=== PATIENT | female | born 1950 | race Caucasian/White ===

== ENCOUNTER 2016-08-11 16:30 | Emergency (ER) | payer MEDICARE, BC ==
[2016-08-11 16:52] VITALS: BP 128/78
[2016-08-11] MEDS ORDERED: Sodium Chloride 0.9% 10 ML Syringe FLUSH PRN (16:54)
[2016-08-11] MEDS ORDERED: Sodium Chloride 0.9% 1,000 ML IV SCH (17:00)
--- NOTE | 2016-08-11 19:58 | EDM.PDOC ---
ED HPI SEIZURE COMPLAINT - General Chief Complaint: Syncope Stated Complaint: NEARLY FAINTED Time Seen by Provider: 08/11/16 16:40 Source of Information: Reports: Patient History Limitations: Reports: No limitations - History of Present Illness INITIAL COMMENTS - FREE TEXT/NARRATIVE: The patient presents with near syncope. She was playing cards with friends today and she told them she did not feel well and she had to lay down. She did that and she nearly passed out. She had no chest pain or shortness of breath. She had no headache. She has no abdominal pain, nausea or vomiting. She says for a few months she has had trouble with bright lights like in stores. It would make her vision seem strange. July 21 [place] was in [employer] and she did not feel right. She put her head down on her cart and the next thing she knows she is on her way to the hospital. She passed out and had a seizure. She was evaluated at [facility] and admitted. They did a CT of her head and chest that looked good. He troponin was elevated but her EKG showed nothing acute. She had an echocardiogram that looked good. Cardiology did see her. Her doctor Dr Marsh ordered an EEG that was normal and an MRI of her brain that showed some ischemic white matter changes. She denies any changes in her medications. Since the , she has not felt well. She has very little energy. Timing/Duration: Reports: minutes: Event Occurred (Where): other ([facility]) Event (Witnessed/Unwitnessed): witnessed Pre Event Symptom(s): Reports: other (Near syncope) - Related Data Allergies/ADRs: Allergies Allergy/AdvReac Type Severity Reaction Status Date / Time ciprofloxacin [From Cipro] Allergy Renal Verified 08/11/16 16:40 Failure diphenhydramine Allergy Itching Verified 08/11/16 16:40 [From Benadryl] metoclopramide [From Reglan] Allergy Change Verified 08/11/16 16:40 Mental Status Penicillins Allergy Rash Verified 08/11/16 16:40 Sulfa (Sulfonamide Allergy Rash Verified 08/11/16 16:40 Antibiotics) Home Meds: Home Meds Oc Cit/Mag/D3/Zn/Candle Extrusion Machine Operator/Jensen/Bor [Citracal-Vit D + Magnesium] 1 tab PO PCDINNER [History] LORazepam [Ativan] 1 mg PO Q8H PRN 08/11/16 [History] PARoxetine HCl [Paxil Cr] 37.5 mg PO DAILY 08/11/16 [History] Rosuvastatin [Crestor] 10 mg PO MOWEFRSA 08/11/16 [History] Ubidecarenone [Co Q-10] 100 mg PO BEDTIME 08/11/16 [History] Past Medical History HEENT History: Reports: Cataract, Impaired vision Other HEENT History: wears eyeglasses Cardiovascular History: Reports: Heart murmur, High cholesterol Gastrointestinal History: Reports: GERD, Hiatal hernia Musculoskeletal History: Reports: Arthritis Neurological History: Reports: Other (see below) Other Neuro History: 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 Psychiatric History: Reports: Anxiety, Depression - Infectious Disease History Infectious Disease History: Reports: Chicken pox, Measles - Past Surgical History GI Surgical History: Reports: Appendectomy, Cholecystectomy Musculoskeletal Surgical History: Reports: Knee replacement Social & Family History - Tobacco Use Smoking Status *Q: Never Smoker Second Hand Smoke Exposure: No - Caffeine Use Caffeine Use: Reports: Soda - Recreational Drug Use Recreational Drug Use: No ED ROS GENERAL - Review of Systems Review Of Systems: See Below Constitutional: Reports: no symptoms HEENT: Reports: No symptoms Respiratory: Reports: no symptoms Cardiovascular: Reports: No symptoms Endocrine: Reports: no symptoms GI/Abdominal: Reports: No symptoms : Reports: no symptoms Musculoskeletal: Reports: no symptoms - Physical Exam Exam: See Below Exam Limited By: No limitations General Appearance: alert, no apparent distress Ears: normal external exam Nose: normal inspection Throat/Mouth: Normal inspection Head Exam: atraumatic, normocephalic Neck: normal inspection Respiratory/Chest: no respiratory distress, lungs clear, normal breath sounds Cardiovascular: regular rate, rhythm, no edema, no murmur GI/Abdominal: soft, non tender, no organomegaly Neuro Exam (Abbreviated): alert, oriented, no motor/sensory deficits EKG INTERPRETATION EKG Date: 08/11/16 Time: 16:38 Rhythm: NSR Rate (beats/min): 87 Diggs: normal P-wave: present QRS: normal ST-T: normal QT: normal Course - Vital Signs Last Recorded V/S: Last Vital Signs Temp 98.1 F 08/11/16 16:30 Pulse 90 08/11/16 16:30 Resp 12 08/11/16 16:30 BP 128/78 08/11/16 16:30 Pulse Ox 96 08/11/16 16:30 - Orders/Labs/Meds Orders: Active Orders 24 hr Category Date Time Status Cardiac Monitoring [RC] . DIRECTED Care 08/11/16 16:54 Active EKG Documentation Completion [RC] STAT Care 08/11/16 16:55 Active Holter Monitor 48 Hours [RC] .PRN Care 08/11/16 19:48 Active Peripheral IV Care [RC] . DIRECTED Care 08/11/16 16:55 Active Sodium Chloride 0.9% [Normal Saline] 1,000 ml Med 08/11/16 17:00 Active IV ASDIRECTED Sodium Chloride 0.9% [Saline Flush] Med 08/11/16 16:54 Active 10 ml FLUSH ASDIRECTED PRN Peripheral IV Insertion Adult [OM.PC] Stat Oth 08/11/16 16:54 Ordered Medication Orders Sodium Chloride (Normal Saline) 1,000 mls @ 125 mls/hr IV ASDIRECTED KODY Last Admin: 08/11/16 17:15 Dose: 125 mls/hr Sodium Chloride (Saline Flush) 10 ml FLUSH ASDIRECTED PRN PRN Reason: Keep Vein Open Last Admin: 08/11/16 17:10 Dose: 10 ml Labs: Laboratory Tests 08/11/16 08/11/16 Range/Units 17:10 17:10 WBC 5.48 (3.98-10.04) K/mm3 RBC 4.33 (3.98-5.22) M/mm3 Hgb 13.1 (11.2-15.7) gm/L Hct 40.5 (34.1-44.9) % MCV 93.5 (79.4-94.8) fl MCH 30.3 (25.6-32.2) pg MCHC 32.3 (32.2-35.5) g/dl RDW Std Deviation 45.9 (36.4-46.3) fL Plt Count 309 (182-369) K/mm3 MPV 9.6 (9.4-12.3) fl Neut % (Auto) 55.2 (34.0-71.1) % Lymph % (Auto) 24.8 (19.3-51.7) % [place] % (Auto) 13.3 H (4.7-12.5) % Eos % (Auto) 4.9 (0.7-5.8) Baso % (Auto) 0.9 (0.1-1.2) % Neut # 3.02 (1.56-6.13) K/mm3 Lymph # 1.36 (1.18-3.74) K/mm3 [place] # 0.73 H (0.24-0.36) K/mm3 Eos # 0.27 (0.04-0.36) K/mm3 Baso # 0.05 (0.01-0.08) K/mm3 Sodium 141 (136-145) mEq/L Potassium 3.9 (3.5-5.1) mEq/L Chloride 106 (98-107) mEq/L Carbon Dioxide 26 (21-32) mEq/L Anion Gap 12.9 (5-15) BUN 15 (7-18) mg/dL Creatinine 1.0 (0.55-1.02) mg/dL Est Cr Clr Drug Dosing 57.83 mL/min Estimated GFR (MDRD) 55 (>60) mL/min BUN/Creatinine Ratio 15.0 (14-18) Glucose 126 H (80-115) mg/dL Calcium 8.3 L (8.5-10.1) mg/dL Total Bilirubin 0.3 (0.2-1.0) mg/dL AST 24 (15-37) U/L ALT 28 (14-59) U/L Alkaline Phosphatase 125 H (46-116) U/L Troponin I < 0.017 (0.00-0.056) ng/mL Total Protein 6.9 (6.4-8.2) g/dl Albumin 3.4 (3.4-5.0) g/dl Globulin 3.5 gm/dL Albumin/Globulin Ratio 1.0 (1-2) Meds: Medications Generic Name Dose Route Start Last Admin Trade Name Freq PRN Reason Stop Dose Admin Sodium Chloride 1,000 mls @ 125 mls/hr 08/11/16 17:00 08/11/16 17:15 Normal Saline IV 125 mls/hr ASDIRECTED KODY Administration Sodium Chloride 10 ml 08/11/16 16:54 08/11/16 17:10 Saline Flush FLUSH 10 ml ASDIRECTED PRN Administration Keep Vein Open - Re-Assessments/Exams Free Text/Narrative Re-Assessment/Exam: 08/11/16 20:00 I ordered an IV NS, EKG and labs. Her EKG shows a NSR with no acute changes. Her CBC and CMP look good. Her troponin was negative. I called Dr Kasper at [facility] in [place] and he wanted a holter monitor and he recommended she see his partner Dr Hummel. I have ordered a holter monitor for her. Departure - Departure Time of Disposition: 20:05 Disposition: Home, Self-Care 01 Condition: good Clinical Impression: Near syncope Referrals: Gino Marsh MD [Primary Care Provider] - Forms: ED Department Discharge Additional Instructions: Wear the holter monitor for 2 days. Please call [facility] specialty clinics to make an appointment for the neurologist Dr Kasper or Dr Hummel. Please return if you are worse. - My Orders Last 24 Hours: My Active Orders 08/11/16 16:54 Cardiac Monitoring [RC] . DIRECTED Sodium Chloride 0.9% [Saline Flush] 10 ml FLUSH ASDIRECTED PRN Peripheral IV Insertion Adult [OM.PC] Stat 08/11/16 16:55 EKG Documentation Completion [RC] STAT Peripheral IV Care [RC] . DIRECTED 08/11/16 17:00 Sodium Chloride 0.9% [Normal Saline] 1,000 ml IV ASDIRECTED 08/11/16 19:48 Holter Monitor 48 Hours [RC] .PRN - Assessment/Plan Last 24 Hours: My Active Orders 08/11/16 16:54 Cardiac Monitoring [RC] . DIRECTED Sodium Chloride 0.9% [Saline Flush] 10 ml FLUSH ASDIRECTED PRN Peripheral IV Insertion Adult [OM.PC] Stat 08/11/16 16:55 EKG Documentation Completion [RC] STAT Peripheral IV Care [RC] . DIRECTED 08/11/16 17:00 Sodium Chloride 0.9% [Normal Saline] 1,000 ml IV ASDIRECTED 08/11/16 19:48 Holter Monitor 48 Hours [RC] .PRN
== END 2016-08-11 20:35 | disposition home or self-care (01) ==
LOC: JD.ED 16:30
DX: R55 Syncope and collapse (principal); Z88.1 Allergy status to other antibiotic agents; Z88.8 Allergy status to other drugs, medicaments and biological substances; Z88.0 Allergy status to penicillin; Z88.2 Allergy status to sulfonamides; Z79.899 Other long term (current) drug therapy; E78.00 Pure hypercholesterolemia, unspecified; K21.9 Gastro-esophageal reflux disease without esophagitis; K44.9 Diaphragmatic hernia without obstruction or gangrene; M19.90 Unspecified osteoarthritis, unspecified site; F32.9 Major depressive disorder, single episode, unspecified; F41.9 Anxiety disorder, unspecified; Z96.659 Presence of unspecified artificial knee joint
CPT/HCPCS: 36415; 80053; 84484; 85025; 93005; 93225; 93226; 96360; 96361; 99284; J7040; J7050; 99285

== ENCOUNTER 2017-01-26 07:28 | Day surgery (SDC) | payer MEDICARE, BC ==
[~2017-01-26 07:28] MED LIST: Cefuroxime 10 MG/ML SYRINGE EYERT SCH; Lidocaine 1% PF 2 ML SDV INJECT SCH; Pilocarpine 4% Ophth Soln 15 ML Bot EYERT SCH
[2017-01-26] MEDS: Tobramycin 0.3% Ophth Drops 5 ML Bottle EYERT SCH ×3 (07:41→09:40)
[2017-01-26] MEDS: Brimonidine 0.2% Ophth Soln 5 ML Bottle EYERT SCH ×3 (07:46→09:40)
--- NOTE | 2017-01-26 07:48 | PCM.PREANE ---
Preanesthetic Assessment - Anesthesia/Transfusion/Family Hx Anesthesia History: Prior Anesthesia Without Reaction Family History of Anesthesia Reaction: No - Review of Systems General: No Symptoms Pulmonary: Shortness of Breath (SOB with several flights of stairs) Cardiovascular: Other (murmur) Gastrointestinal: Other (hiatal hernia, occassional heartburn) Neurological: Seizure (had seizure in July, MRI, CT negative, neurologist feels related to visual bright lights) Other: Reports: Anxiety - Physical Assessment NPO Status Date: 01/25/17 NPO Status Time: 21:00 Pulse: 74 O2 Sat by Pulse Oximetry: 95 Respiratory Rate: 16 Blood Pressure: 130/75 Height: 1.75 m Weight: 114.305 kg ASA Class: 2 Mental Status: Alert & Oriented x3 Airway Class: Mallampati = 2 Dentition: Reports: Dentures, Edentulous Thyro-Mental Finger Breadths: 3 Mouth Opening Finger Breadths: 3 ROM/Head Extension: Full Lungs: Clear to Auscultation, Normal Respiratory Effort Cardiovascular: Regular Rate, Regular Rhythm - Allergies Allergies/Adverse Reactions: Allergies Allergy/AdvReac Type Severity Reaction Status Date / Time cephalexin [From Keflex] Allergy Cannot Verified 01/25/17 10:12 Remember codeine Allergy Cannot Verified 01/25/17 10:12 Remember diphenhydramine Allergy Itching Verified 01/25/17 10:12 [From Benadryl] Penicillins Allergy Rash Verified 01/25/17 10:12 Sulfa (Sulfonamide Allergy Rash Verified 01/25/17 10:12 Antibiotics) ciprofloxacin [From Cipro] AdvReac Renal Verified 01/25/17 10:12 Failure metoclopramide [From Reglan] AdvReac Change Verified 01/25/17 10:12 Mental Status - Blood Blood Available: No Product(s) Available: None - Anesthesia Plan Pre-Op Medication Ordered: None - Acknowledgements Anesthesia Type Planned: MAC Pt an Appropriate Candidate for the Planned Anesthesia: Yes Alternatives and Risks of Anesthesia Discussed w Pt/Guardian: Yes Pt/Guardian Understands and Agrees with Anesthesia Plan: Yes PreAnesthesia Questionnaire HEENT History: Reports: Cataract, Impaired Vision Other HEENT History: wears eyeglasses Cardiovascular History: Reports: Heart Murmur, High Cholesterol Gastrointestinal History: Reports: GERD, Hiatal Hernia Musculoskeletal History: Reports: Arthritis Neurological History: Reports: Other (See Below) Other Neuro History: 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 Psychiatric History: Reports: Anxiety, Depression - Infectious Disease History Infectious Disease History: Reports: Chicken Pox, Measles - Past Surgical History Musculoskeletal Surgical History: Reports: Knee Replacement - SUBSTANCE USE Smoking Status *Q: Never Smoker Second Hand Smoke Exposure: No Recreational Drug Use History: No - HOME MEDS Home Medications: Home Meds LORazepam [Ativan] 1 mg PO Q8H PRN 08/11/16 [History] PARoxetine HCl [Paxil Cr] 37.5 mg PO DAILY 08/11/16 [History] Rosuvastatin [Crestor] 10 mg PO MOWEFRSA 08/11/16 [History] Calcium Carbonate [Calcium] 500 mg PO DAILY 01/25/17 [History] Cholecalciferol (Vitamin D3) [Vitamin D] 5,000 unit PO DAILY 01/25/17 [History] Magnesium 250 mg PO DAILY 01/25/17 [History] - CURRENT (IN HOUSE) MEDS Current Meds: Current Medications Brimonidine Tartrate (Alphagan 0.2% Ophth Soln) 0 ml EYERT ASDIRECTED KODY Stop: 01/26/17 18:00 Cefuroxime Sodium (Zinacef) 0 mg EYERT ASDIRECTED KODY Stop: 01/26/17 18:00 Lidocaine HCl (Xylocaine-Mpf 1%) 10 ml INJECT ASDIRECTED KODY Stop: 01/26/17 18:00 Phenylephrine HCl (Paul-Synephrine 2.5% Ophth Soln) 0 ml EYERT ASDIRECTED KODY Stop: 01/26/17 18:00 Pilocarpine HCl (Pilocar 4% Ophth Soln) 0 ml EYERT ASDIRECTED KODY Stop: 01/26/17 18:00 Tetracaine HCl (Tetracaine 0.5% Steri-Unit Elizabeth) 0 ml EYERT ASDIRECTED KODY Stop: 01/26/17 18:00 Tobramycin (Tobramycin 0.3% Ophth Soln) 0 ml EYERT ASDIRECTED KODY Stop: 01/26/17 18:00 Tropicamide (Mydriacyl 1% Ophth Soln) 0 ml EYERT ASDIRECTED KODY Stop: 01/26/17 18:00
[2017-01-26] MEDS: Phenylephrine 2.5% Ophth Soln 2 ML Bot EYERT SCH ×5 (07:50→09:23)
[2017-01-26] MEDS: Tetracaine HCl/PF 0.5% 4 ML Bottle EYERT SCH ×2 (09:05→09:29)
--- NOTE | 2017-01-26 09:16 | PCM48HPAN ---
Post Anesthesia Note - EVALUATION WITHIN 48HRS OF ANESTHETIC Vital Signs in Normal Range: Yes Patient Participated in Evaluation: Yes Respiratory Function Stable: Yes Airway Patent: Yes Cardiovascular Function Stable: Yes Hydration Status Stable: Yes Pain Control Satisfactory: Yes Nausea and Vomiting Control Satisfactory: Yes Mental Status Recovered: Yes
[2017-01-26] MEDS ORDERED: Midazolam 1 MG/ML 2 ML SDV ONE (09:28)
[2017-01-26] MEDS ORDERED: Propofol 200 MG/20 ML SDV ONE (09:33)
[2017-01-26 10:04] VITALS: BP 125/77
== END 2017-01-26 10:00 | disposition home or self-care (01) ==
LOC: JD.SDS 07:28
PROVIDERS: ATTEND Ophthalmology
DX: H25.811 Combined forms of age-related cataract, right eye (principal); H35.373 Puckering of macula, bilateral; H35.40 Unspecified peripheral retinal degeneration; H43.813 Vitreous degeneration, bilateral; M19.90 Unspecified osteoarthritis, unspecified site; E78.00 Pure hypercholesterolemia, unspecified; F41.9 Anxiety disorder, unspecified; F32.9 Major depressive disorder, single episode, unspecified; Z88.0 Allergy status to penicillin; Z88.1 Allergy status to other antibiotic agents; Z88.2 Allergy status to sulfonamides; Z88.5 Allergy status to narcotic agent; Z88.8 Allergy status to other drugs, medicaments and biological substances; Z79.82 Long term (current) use of aspirin; Z79.899 Other long term (current) drug therapy; Z87.442 Personal history of urinary calculi; Z90.49 Acquired absence of other specified parts of digestive tract; Z90.710 Acquired absence of both cervix and uterus; Z96.659 Presence of unspecified artificial knee joint; Z98.890 Other specified postprocedural states
CPT/HCPCS: 66984; A9270; C1780; J0697; J2250; J2704

== ENCOUNTER 2017-02-21 10:20 | Day surgery (SDC) | payer MEDICARE, BC ==
[~2017-02-21 10:20] MED LIST changes: +Cefuroxime 10 MG/ML SYRINGE EYELF SCH; -Cefuroxime 10 MG/ML SYRINGE EYERT SCH; +Pilocarpine 4% Ophth Soln 15 ML Bot EYELF SCH; -Pilocarpine 4% Ophth Soln 15 ML Bot EYERT SCH; +Polymyxin B/Trimethoprim 10 ML Bottle EYELF SCH
--- NOTE | 2017-02-21 12:00 | PCM.PREANE ---
Preanesthetic Assessment - Procedure Proposed Procedure: Left eye cataract extraction - Anesthesia/Transfusion/Family Hx Anesthesia History: Prior Anesthesia Without Reaction Family History of Anesthesia Reaction: No Transfusion History: No Prior Transfusion(s) Intubation History: Unknown - Review of Systems General: No Symptoms Pulmonary: No Symptoms Cardiovascular: No Symptoms (Heart murmur) Gastrointestinal: No Symptoms Neurological: Seizure Other: Reports: Depression, Anxiety - Physical Assessment NPO Status Date: 02/20/17 NPO Status Time: 11:45 Pulse: 62 O2 Sat by Pulse Oximetry: 96 Respiratory Rate: 16 Blood Pressure: 134/73 Temperature: 98.6 C Height: 1.75 m Weight: 114.305 kg ASA Class: 2 Mental Status: Alert & Oriented x3 Airway Class: Mallampati = 2 Dentition: Reports: Dentures (Upper and lower) Thyro-Mental Finger Breadths: 3 Mouth Opening Finger Breadths: 3 ROM/Head Extension: Full Lungs: Clear to Auscultation, Normal Respiratory Effort Cardiovascular: Regular Rate, Regular Rhythm - Allergies Allergies/Adverse Reactions: Allergies Allergy/AdvReac Type Severity Reaction Status Date / Time cephalexin [From Keflex] Allergy Cannot Verified 02/20/17 14:59 Remember codeine Allergy Cannot Verified 02/20/17 14:59 Remember diphenhydramine Allergy Itching Verified 02/20/17 14:59 [From Benadryl] Penicillins Allergy Rash Verified 02/20/17 14:59 Sulfa (Sulfonamide Allergy Rash Verified 02/20/17 14:59 Antibiotics) ciprofloxacin [From Cipro] AdvReac Renal Verified 02/20/17 14:59 Failure metoclopramide [From Reglan] AdvReac Change Verified 02/20/17 14:59 Mental Status - Anesthesia Plan Pre-Op Medication Ordered: None - Acknowledgements Anesthesia Type Planned: MAC Pt an Appropriate Candidate for the Planned Anesthesia: Yes Alternatives and Risks of Anesthesia Discussed w Pt/Guardian: Yes Pt/Guardian Understands and Agrees with Anesthesia Plan: Yes PreAnesthesia Questionnaire HEENT History: Reports: Cataract, Impaired Vision Other HEENT History: wears eyeglasses Cardiovascular History: Reports: Heart Murmur, High Cholesterol Gastrointestinal History: Reports: GERD, Hiatal Hernia Musculoskeletal History: Reports: Arthritis Neurological History: Reports: Other (See Below) Other Neuro History: 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 Psychiatric History: Reports: Anxiety, Depression - Infectious Disease History Infectious Disease History: Reports: Chicken Pox, Measles - Past Surgical History Musculoskeletal Surgical History: Reports: Knee Replacement - SUBSTANCE USE Smoking Status *Q: Never Smoker Second Hand Smoke Exposure: No Recreational Drug Use History: No - HOME MEDS Home Medications: Home Meds LORazepam [Ativan] 1 mg PO Q8H PRN 08/11/16 [History] PARoxetine HCl [Paxil Cr] 37.5 mg PO DAILY 08/11/16 [History] Rosuvastatin [Crestor] 10 mg PO MOWEFRSA 08/11/16 [History] Calcium Carbonate [Calcium] 500 mg PO DAILY 01/25/17 [History] Cholecalciferol (Vitamin D3) [Vitamin D] 5,000 unit PO DAILY 01/25/17 [History] Magnesium 250 mg PO DAILY 01/25/17 [History] - CURRENT (IN HOUSE) MEDS Current Meds: Current Medications Brimonidine Tartrate (Alphagan 0.2% Ophth Soln) 0 ml EYELF ASDIRECTED KODY Stop: 02/21/17 18:00 Cefuroxime Sodium (Zinacef) 0 mg EYELF ASDIRECTED KODY Stop: 02/21/17 18:00 Lidocaine HCl (Xylocaine-Mpf 1%) 1 ml INJECT ASDIRECTED KODY Stop: 02/21/17 18:00 Phenylephrine HCl (Paul-Synephrine 2.5% Ophth Soln) 0 ml EYELF ASDIRECTED KODY Stop: 02/21/17 18:00 Pilocarpine HCl (Pilocar 4% Ophth Soln) 0 ml EYELF ASDIRECTED KODY Stop: 02/21/17 18:00 Tetracaine HCl (Tetracaine 0.5% Steri-Unit Elizabeth) 0 ml EYELF ASDIRECTED KODY Stop: 02/21/17 18:00 Tobramycin (Tobramycin 0.3% Ophth Soln) 0 ml EYELF ASDIRECTED KODY Stop: 02/21/17 18:00 Tropicamide (Mydriacyl 1% Ophth Soln) 0 ml EYELF ASDIRECTED KODY Stop: 02/21/17 18:00 Discontinued Medications Polymyxin/Trimethoprim Sulfate (Polytrim Ophth Soln) 0 ml EYELF ASDIRECTED KODY
[2017-02-21] MEDS: Tobramycin 0.3% Ophth Drops 5 ML Bottle EYELF SCH ×3 (12:02→13:33)
[2017-02-21] MEDS: Brimonidine 0.2% Ophth Soln 5 ML Bottle EYELF SCH ×3 (12:07→13:33)
[2017-02-21] MEDS: Phenylephrine 2.5% Ophth Soln 2 ML Bot EYELF SCH ×5 (12:13→13:17)
[2017-02-21] MEDS: Tetracaine HCl/PF 0.5% 4 ML Bottle EYELF SCH ×2 (13:07→13:24)
[2017-02-21 13:47] VITALS: BP 159/86
== END 2017-02-21 13:45 | disposition home or self-care (01) ==
LOC: JD.SDS 10:20
PROVIDERS: ATTEND Ophthalmology
PROC: 08RK3JZ Replacement of Left Lens with Synthetic Substitute, Percutaneous Approach (ICD-10-PCS; principal; 2017-02-21)
DX: H25.812 Combined forms of age-related cataract, left eye (principal); E78.00 Pure hypercholesterolemia, unspecified; M19.90 Unspecified osteoarthritis, unspecified site; Z88.5 Allergy status to narcotic agent; Z88.0 Allergy status to penicillin; Z88.2 Allergy status to sulfonamides; Z88.8 Allergy status to other drugs, medicaments and biological substances; Z88.1 Allergy status to other antibiotic agents; Z79.82 Long term (current) use of aspirin; Z79.899 Other long term (current) drug therapy
CPT/HCPCS: 66984; A9270; J0697; C1780

== ENCOUNTER 2020-12-31 14:44 | Emergency (ER) | payer MEDICARE, BC ==
--- NOTE | 2020-12-31 15:11 | EDM.PDOC ---
ED HPI GENERAL MEDICAL PROBLEM - General Chief Complaint: Chest Pain Stated Complaint: CHEST PAIN Time Seen by Provider: 12/31/20 15:11 Source of Information: Reports: Patient History Limitations: Reports: No Limitations - History of Present Illness INITIAL COMMENTS - FREE TEXT/NARRATIVE: 70-year-old female presents to the ED with diffuse epigastric pressure discomfort which she states is like a balled up fist in the middle of her epigastrium rating up into the lower retrosternal. She states for a while it was radiating through to the back but not now occasional nausea without any vomiting. No burping or belching. 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 As far she knows she does not have a hiatal hernia. She has had previous cholecystectomy many years ago. States bowel function has been normal without any blood. She has not taken any medication for this pain. It is currently rated as 9 out of 10. Onset: Today, Sudden Onset Date: 12/31/20 Onset Time: 12:00 Duration: Hour(s):, Constant, Getting Worse Location: Reports: Abdomen (Epigastrium and lower retrosternal chest.) Quality: Reports: Ache, Pressure Severity: Moderate Improves with: Reports: None (9 of the 10) Worsens with: Reports: None Context: Denies: Activity, Exercise, Lifting, Sick Contact, Trauma, Other Associated Symptoms: Reports: Chest Pain, Loss of Appetite, Malaise. 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: Other (see below) Other Treatments LAND ACQUISITION MANAGER: none Upper Abdomen Pain Score (Numeric/FACES): 9 - Related Data Allergies Allergy/AdvReac Type Severity Reaction Status Date / Time cephalexin [From Keflex] Allergy Severe Cannot Verified 12/31/20 15:08 Remember codeine Allergy Severe Cannot Verified 12/31/20 15:08 Remember diphenhydramine Allergy Severe Itching Verified 12/31/20 15:08 [From Benadryl] Penicillins Allergy Severe Rash Verified 12/31/20 15:08 Sulfa (Sulfonamide Allergy Severe Rash Verified 12/31/20 15:08 Antibiotics) ciprofloxacin [From Cipro] AdvReac Severe Renal Verified 12/31/20 15:08 Failure metoclopramide [From Reglan] AdvReac Severe Change Verified 12/31/20 15:08 Mental Status Home Meds: Home Meds LORazepam [Ativan] 1 mg PO Q8H PRN 08/11/16 [History] PARoxetine HCL [Paxil Cr] 37.5 mg PO DAILY 08/11/16 [History] Calcium Carbonate [Calcium] 500 mg PO DAILY 01/25/17 [History] Cholecalciferol (Vitamin D3) [Vitamin D] 5,000 unit PO DAILY 01/25/17 [History] Magnesium 250 mg PO DAILY 01/25/17 [History] Dicyclomine [Bentyl] 20 mg PO Q6H PRN #12 tablet 12/31/20 [Rx] Hyoscyamine Sulfate [Levsin-Sl] 0.125 mg SL ASDIRECTED #8 tab.subl 12/31/20 [Rx] PARoxetine [Paxil] 12.5 mg PO DAILY 12/31/20 [History] Past Medical History HEENT History: Reports: Cataract, Impaired Vision Other HEENT History: wears eyeglasses Cardiovascular History: Reports: Heart Murmur, High Cholesterol Gastrointestinal History: Reports: GERD, Hiatal Hernia Musculoskeletal History: Reports: Arthritis Neurological History: Reports: Other (See Below) Other Neuro History: 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 Psychiatric History: Reports: Anxiety, Depression - Infectious Disease History Infectious Disease History: Reports: Chicken Pox, Measles - Past Surgical History Musculoskeletal Surgical History: Reports: Knee Replacement Social & Family History - Caffeine Use Caffeine Use: Reports: Soda - Living Situation & Occupation Living situation: Reports: Single Occupation: Retired [employer] [facility] - Review of Systems Review Of Systems: See Below Constitutional: Denies: Fever, Chills, Malaise, Weakness, Fatigue, Decreased Appetite, Weight Loss HEENT: Reports: Glasses Respiratory: Reports: No Symptoms Cardiovascular: Reports: No Symptoms Endocrine: Reports: No Symptoms GI/Abdominal: Reports: Abdominal Pain (See history of present illness), Decreased Appetite. Denies: Difficulty Swallowing, Distension, Flatus, Hematemesis, Hematochezia, Melena, Nausea, Stool Incontinence, Vomiting, Other : Reports: No Symptoms Musculoskeletal: Reports: No Symptoms Skin: Reports: No Symptoms Neurological: Reports: No Symptoms Psychiatric: Reports: No Symptoms Hematologic/Lymphatic: Reports: No Symptoms Immunologic: Reports: No Symptoms ED EXAM, GENERAL - Physical Exam Exam: See Below Exam Limited By: No Limitations General Appearance: Alert, WD/WN, Moderate Distress (Patient is in obvious discomfort and), Other ( rates her pain is 9 out of 10. Temperature is 36.3. Heart rate 79 is sinus respiratory is 20 with O2 sats of 95%. BP is elevated 154 102 presumably due to pain response.) Eye Exam: Bilateral Eye: Normal Inspection (No blepharal pallor or scleral icterus.), PERRL Head: Atraumatic, Normocephalic Neck: Normal Inspection, Supple, Non-Tender, Full Range of Motion. No: Carotid Bruit, Lymphadenopathy (L), Lymphadenopathy (R) Respiratory/Chest: No Respiratory Distress, Lungs Clear, Normal Breath Sounds, No Accessory Muscle Use Cardiovascular: Normal Peripheral Pulses, Regular Rate, Rhythm, No Edema, No Gallop, No Murmur, No Rub Peripheral Pulses: 2+: Carotid (L), Carotid (R), Posterior Tibial (L), Posterior Tibial (R), Dorsalis Pedis (L), Dorsalis Pedis (R) GI/Abdominal: Distended ( very quiesced sent in all 4 quadrants. Mildly distended but not tympanic to percussion more dull to percussion.), Guarding ( with mild guarding.), Tender (Tenderness in the epigastrium), Abnormal Bowel Sounds (Bowel sounds are), Other (Evidence of previous laparoscopic wounds from cholecystectomy.). No: Normal Bowel Sounds, Rigid, Rebound Back Exam: Normal Inspection, Full Range of Motion. No: CVA Tenderness (L), CVA Tenderness (R) Extremities: Normal Inspection, Normal Range of Motion, Non-Tender, No Pedal Edema Neurological: Alert, Oriented, CN II-XII Intact, Normal Cognition Psychiatric: Normal Affect, Normal Mood Skin Exam: Warm, Dry, Intact, Normal Color, No Rash #1 Interpretation EKG Date: 12/31/20 Time: 15:01 Rhythm: NSR Rate (Beats/Min): 78 [place]: Normal P-Wave: Present (P waves present but is inverted in aVL questionable mixup in leads. Mild left atrial hypertrophy.) ST-T: Other (Diffuse repolarization pattern) QT: Normal EKG Interpretation Comments: Borderline ECG with no signs of ischemia Course - Vital Signs Last Recorded V/S: Last Vital Signs Temp 36.3 C 12/31/20 15:12 Pulse 79 12/31/20 15:12 Resp 20 12/31/20 15:12 BP 154/102 H 12/31/20 15:12 Pulse Ox 95 12/31/20 15:12 - Orders/Labs/Meds Orders: Active Orders 24 hr Category Date Time Status EKG 12 Lead [EK] Stat Ther 12/31/20 15:10 Ordered Labs: Laboratory Tests 12/31/20 12/31/20 12/31/20 Range/Units 15:00 15:00 15:00 WBC 7.49 (3.98-10.04) K/mm3 RBC 4.36 (3.98-5.22) M/mm3 Hgb 13.5 (11.2-15.7) gm/dl Hct 41.6 (34.1-44.9) % MCV 95.4 H (79.4-94.8) fl MCH 31.0 (25.6-32.2) pg MCHC 32.5 (32.2-35.5) g/dl RDW Std Deviation 44.4 (36.4-46.3) fL Plt Count 301 (182-369) K/mm3 MPV 9.4 (9.4-12.3) fl Neut % (Auto) 50.9 (34.0-71.1) % Lymph % (Auto) 35.4 (19.3-51.7) % [place] % (Auto) 8.5 (4.7-12.5) % Eos % (Auto) 3.5 (0.7-5.8) Baso % (Auto) 0.8 (0.1-1.2) % Neut # (Auto) 3.81 (1.56-6.13) K/mm3 Lymph # (Auto) 2.65 (1.18-3.74) K/mm3 [place] # (Auto) 0.64 H (0.24-0.36) K/mm3 Eos # (Auto) 0.26 (0.04-0.36) K/mm3 Baso # (Auto) 0.06 (0.01-0.08) K/mm3 Manual Slide Review Not Reportable PT (9.7-12.0) SECONDS INR APTT (21.7-31.4) SECONDS D-Dimer, Quantitative 0.90 H (0.19-0.50) mg/L Sodium 144 (136-145) mEq/L Potassium 4.1 (3.5-5.1) mEq/L Chloride 108 H (98-107) mEq/L Carbon Dioxide 31 (21-32) mEq/L Anion Gap 9.1 (5-15) BUN 8 (7-18) mg/dL Creatinine 1.1 H (0.55-1.02) mg/dL Est Cr Clr Drug Dosing 49.73 mL/min Estimated GFR (MDRD) 49 (>60) mL/min BUN/Creatinine Ratio 7.3 L (14-18) Glucose 119 H (70-99) mg/dL Calcium 8.9 (8.5-10.1) mg/dL Magnesium (1.8-2.4) mg/dL Total Bilirubin 0.5 (0.2-1.0) mg/dL GGT (5-55) U/L AST 32 (15-37) U/L ALT 41 (14-59) U/L Alkaline Phosphatase 118 H (46-116) U/L CK-MB (CK-2) (0-3.6) ng/ml Troponin I < 0.017 (0.00-0.056) ng/mL C-Reactive Protein (<1.0) mg/dL NT-Pro-B Natriuret Pep (0-125) pg/mL Total Protein 7.2 (6.4-8.2) g/dl Albumin 3.5 (3.4-5.0) g/dl Globulin 3.7 gm/dL Albumin/Globulin Ratio 1.0 (1-2) Lipase (73-393) U/L Urine Color (Yellow) Urine Appearance (Clear) Urine pH (5.0-8.0) Ur Specific [place] (1.005-1.030) Urine Protein (Negative) Urine Glucose (UA) (Negative) Urine Ketones (Negative) Urine Occult Blood (Negative) Urine Nitrite (Negative) Urine Bilirubin (Negative) Urine Urobilinogen (0.2-1.0) Ur Leukocyte Esterase (Negative) Urine RBC (0-5) /hpf Urine WBC (0-5) /hpf Ur Squamous Epith Cells (0-5) /hpf Urine Bacteria (FEW) /hpf Urine Mucus (FEW) /hpf 12/31/20 12/31/20 12/31/20 Range/Units 15:00 15:00 15:00 WBC (3.98-10.04) K/mm3 RBC (3.98-5.22) M/mm3 Hgb (11.2-15.7) gm/dl Hct (34.1-44.9) % MCV (79.4-94.8) fl MCH (25.6-32.2) pg MCHC (32.2-35.5) g/dl RDW Std Deviation (36.4-46.3) fL Plt Count (182-369) K/mm3 MPV (9.4-12.3) fl Neut % (Auto) (34.0-71.1) % Lymph % (Auto) (19.3-51.7) % [place] % (Auto) (4.7-12.5) % Eos % (Auto) (0.7-5.8) Baso % (Auto) (0.1-1.2) % Neut # (Auto) (1.56-6.13) K/mm3 Lymph # (Auto) (1.18-3.74) K/mm3 [place] # (Auto) (0.24-0.36) K/mm3 Eos # (Auto) (0.04-0.36) K/mm3 Baso # (Auto) (0.01-0.08) K/mm3 Manual Slide Review PT 10.9 (9.7-12.0) SECONDS INR 1.02 APTT 27.8 (21.7-31.4) SECONDS D-Dimer, Quantitative (0.19-0.50) mg/L Sodium (136-145) mEq/L Potassium (3.5-5.1) mEq/L Chloride (98-107) mEq/L Carbon Dioxide (21-32) mEq/L Anion Gap (5-15) BUN (7-18) mg/dL Creatinine (0.55-1.02) mg/dL Est Cr Clr Drug Dosing mL/min Estimated GFR (MDRD) (>60) mL/min BUN/Creatinine Ratio (14-18) Glucose (70-99) mg/dL Calcium (8.5-10.1) mg/dL Magnesium 2.0 (1.8-2.4) mg/dL Total Bilirubin (0.2-1.0) mg/dL GGT 25 (5-55) U/L AST (15-37) U/L ALT (14-59) U/L Alkaline Phosphatase (46-116) U/L CK-MB (CK-2) 2.2 (0-3.6) ng/ml Troponin I (0.00-0.056) ng/mL C-Reactive Protein <0.2 (<1.0) mg/dL NT-Pro-B Natriuret Pep 80 (0-125) pg/mL Total Protein (6.4-8.2) g/dl Albumin (3.4-5.0) g/dl Globulin gm/dL Albumin/Globulin Ratio (1-2) Lipase (73-393) U/L Urine Color (Yellow) Urine Appearance (Clear) Urine pH (5.0-8.0) Ur Specific [place] (1.005-1.030) Urine Protein (Negative) Urine Glucose (UA) (Negative) Urine Ketones (Negative) Urine Occult Blood (Negative) Urine Nitrite (Negative) Urine Bilirubin (Negative) Urine Urobilinogen (0.2-1.0) Ur Leukocyte Esterase (Negative) Urine RBC (0-5) /hpf Urine WBC (0-5) /hpf Ur Squamous Epith Cells (0-5) /hpf Urine Bacteria (FEW) /hpf Urine Mucus (FEW) /hpf 12/31/20 12/31/20 Range/Units 15:00 15:28 WBC (3.98-10.04) K/mm3 RBC (3.98-5.22) M/mm3 Hgb (11.2-15.7) gm/dl Hct (34.1-44.9) % MCV (79.4-94.8) fl MCH (25.6-32.2) pg MCHC (32.2-35.5) g/dl RDW Std Deviation (36.4-46.3) fL Plt Count (182-369) K/mm3 MPV (9.4-12.3) fl Neut % (Auto) (34.0-71.1) % Lymph % (Auto) (19.3-51.7) % [place] % (Auto) (4.7-12.5) % Eos % (Auto) (0.7-5.8) Baso % (Auto) (0.1-1.2) % Neut # (Auto) (1.56-6.13) K/mm3 Lymph # (Auto) (1.18-3.74) K/mm3 [place] # (Auto) (0.24-0.36) K/mm3 Eos # (Auto) (0.04-0.36) K/mm3 Baso # (Auto) (0.01-0.08) K/mm3 Manual Slide Review PT (9.7-12.0) SECONDS INR APTT (21.7-31.4) SECONDS D-Dimer, Quantitative (0.19-0.50) mg/L Sodium (136-145) mEq/L Potassium (3.5-5.1) mEq/L Chloride (98-107) mEq/L Carbon Dioxide (21-32) mEq/L Anion Gap (5-15) BUN (7-18) mg/dL Creatinine (0.55-1.02) mg/dL Est Cr Clr Drug Dosing mL/min Estimated GFR (MDRD) (>60) mL/min BUN/Creatinine Ratio (14-18) Glucose (70-99) mg/dL Calcium (8.5-10.1) mg/dL Magnesium (1.8-2.4) mg/dL Total Bilirubin (0.2-1.0) mg/dL GGT (5-55) U/L AST (15-37) U/L ALT (14-59) U/L Alkaline Phosphatase (46-116) U/L CK-MB (CK-2) (0-3.6) ng/ml Troponin I (0.00-0.056) ng/mL C-Reactive Protein (<1.0) mg/dL NT-Pro-B Natriuret Pep (0-125) pg/mL Total Protein (6.4-8.2) g/dl Albumin (3.4-5.0) g/dl Globulin gm/dL Albumin/Globulin Ratio (1-2) Lipase 50 L (73-393) U/L Urine Color Light yellow (Yellow) Urine Appearance Clear (Clear) Urine pH 7.0 (5.0-8.0) Ur Specific [place] 1.010 (1.005-1.030) Urine Protein Negative (Negative) Urine Glucose (UA) Negative (Negative) Urine Ketones Negative (Negative) Urine Occult Blood Negative (Negative) Urine Nitrite Negative (Negative) Urine Bilirubin Negative (Negative) Urine Urobilinogen 0.2 (0.2-1.0) Ur Leukocyte Esterase Negative (Negative) Urine RBC 0-5 (0-5) /hpf Urine WBC 0-5 (0-5) /hpf Ur Squamous Epith Cells Not seen (0-5) /hpf Urine Bacteria Few (FEW) /hpf Urine Mucus Not seen (FEW) /hpf Meds: Medications Discontinued Medications Generic Name Dose Route Start Last Admin Trade Name Freq PRN Reason Stop Dose Admin Dicyclomine HCl 20 mg 12/31/20 16:21 12/31/20 17:06 Dicyclomine 10 Mg Cap PO 12/31/20 16:22 20 mg ONETIME ONE Administration Hydromorphone HCl 0.5 mg 12/31/20 15:22 12/31/20 17:59 Hydromorphone 0.5 Mg/0.5 Ml Syringe IVPUSH 12/31/20 15:23 Not Given ONETIME ONE Hyoscyamine 0.125 mg 12/31/20 16:21 12/31/20 17:06 Hyoscyamine 0.125 Mg Tab.Sl SL 12/31/20 16:22 0.125 mg ONETIME ONE Administration Sodium Chloride 1,000 mls @ 150 mls/hr 12/31/20 15:30 12/31/20 15:46 Normal Saline IV 150 mls/hr ASDIRECTED KODY Administration Sodium Chloride 100 mls @ 60 mls/hr 12/31/20 16:30 12/31/20 17:07 Normal Saline IV 60 mls/hr ASDIRECTED KODY Administration Iopamidol 50 ml 12/31/20 16:29 12/31/20 17:07 Iopamidol 755 Mg/Ml 50 Ml Bottle IVPUSH 12/31/20 16:30 25 ml ONETIME ONE Administration Iopamidol 100 ml 12/31/20 16:29 12/31/20 17:06 Iopamidol 755 Mg/Ml 100 Ml Bottle IVPUSH 12/31/20 16:30 100 ml ONETIME ONE Administration Ondansetron HCl 4 mg 12/31/20 15:22 12/31/20 15:46 Ondansetron 4 Mg/2 Ml Sdv IVPUSH 12/31/20 15:23 4 mg ONETIME ONE Administration Sodium Chloride 10 ml 12/31/20 16:30 12/31/20 17:07 Sodium Chloride 0.9% 10 Ml Syringe FLUSH 10 ml ASDIRECTED KODY Administration - Radiology Interpretation Free Text/Narrative:: 70-year-old female presents to the ED with fairly sudden onset of severe epigastric pressure discomfort. She describes as a closed fist in her epigastrium. No feeling of need to vomit or burp or belch to relieve the discomfort. Started shortly after dinner today around noon hour. It is gradually intensified. Initially was rating through to her back but not anymore. It is radiating more up into her retrosternal chest. ECG done by triage nurse shows sinus rhythm at 78/min with no signs of ischemia. Examination reveals tenderness and a fullness sensation in the epigastrium. Patient did have a paraesophageal hernia or diverticulum resected in [place] about a year ago and did well with the surgery. Dr. Arias did the surgery. Cholecystectomy was done many years ago. History suggests that she may well have a common bile duct stone versus hiatal hernia/bowel obstruction. Plan X1 x-ray of the chest one x-ray of the abdomen. Routine labs to include serum lipase and cardiac markers. IV will be normal saline at 150 mils per hour. Given Zofran 4 mg IV for nausea relief. Offered her Dilaudid 0.5 mg for pain relief but she declined as she does not like the effect of narcotic. At this point time she NSAIDs are relatively contraindicated included Toradol due to the potential for surgery needed. - Re-Assessments/Exams Free Text/Narrative Re-Assessment/Exam: 12/31/20 15:45 1 view chest x-ray reveals clear lung parenchyma. No pleural effusion no pneumothorax. Cardiac silhouette is normal with minimal tortuosity of the thoracic aorta. 1 view of the abdomen was also performed. Shows a normal gas pattern with no signs of bowel obstruction to account for her severe epigastric pain. Several calcifications are seen within the pelvis compatible with phleboliths. Calcification is noted within the left upper abdomen which is nonspecific but most likely benign. Minimal degenerative changes are appreciated within the spine plan will be to go ahead with CT of the abdomen without contrast. 12/31/20 16:12 White count is normal at 7.49 with the auto differential showing 51% neutrophils. Hemoglobin was 13.5 with hematocrit of 41.6. MCV is minimally elevated at 95.4. Platelet counts 301,000. PT is 10.9 with an INR of 1.02. PTT is 27.8. D-dimer is mildly elevated at 0.9. Sodium 144 with a potassium of 4.1 chloride 108 with a bicarb of 31 anion gap is 9.1 with a BUN of 8. Creatinine is 1.1. Glucose is 119 with a calcium of 8.9 magnesium is 2.0 bilirubin is 0.5 GGT is 25 AST is 32 ALT is 41 alkaline phosphatase minimally elevated at 118. Therefore no signs of biliary tree obstruction. CK-MB fraction is 2.2 troponin I is less than 0.017 C-reactive protein is less than 0.2. BNP is 80. Total protein is 7.2 with an albumin fraction of 3.5 lipase is normal at 50. Urinalysis is completely normal as well. 12/31/20 17:14 CT chest for pulmonary angiogram study completed. Visualized lungs appear normal. There appears to be no evidence of pulmonary emboli. Cardiac silhouette is normal. Thoracic aorta shows no aneurysm. Small area of low density is seen within the left lobe of the thyroid gland which measures 1.4 cm. This is compatible with a thyroid cyst. Mediastinum shows no adenopathy coronary artery calcification is seen. No pericardial thickening is seen. Lung window settings were reviewed. Slight dependent atelectasis is incidentally noted within both posterior lungs. Nodules identified within the left lung base which shows calcification and measures about 1 cm which is combined with an incidental granuloma. Lungs show no acute parenchymal changes. Bone window settings were reviewed which showed mild diffuse disc space narrowing with in the visualized lower cervical spine and thoracic spine no acute osseous abnormalities are appreciated. There is a moderate hiatal hernia present which I believe is causing the patient's current pain syndrome. There is slight wall thickening seen within the esophagus which is suspicious for nondocumented reflux esophagitis. CT of the abdomen /pelvis confirmed hiatal hernia moderate sized retrocardiac. Low-density lesion is noted within the posterior right lobe of the liver measuring 1.3 cm. This appears to be solid and is otherwise nonspecific liver is otherwise unremarkable. No ductal dilatation. Gallbladder is absent. Pancreas appears somewhat atrophic. Spleen is normal. Adrenal glands appear normal. She has a 3.3 x 3.3 single renal cyst in the upper pole of the right kidney. No stones in either kidney. Ureters appear patent all the way down to the urinary bladder. She did have a small fat-containing umbilical hernia. Pelvic organs appear normal. Abdominal aorta shows atherosclerotic calcification which continues into the iliac vessels. No aneurysm is seen. No pelvic mass or adenopathy noted. Appendix was not definitively visualized. There is no retroperitoneal adenopathy or pelvic adenopathy appreciated. Bone window settings were reviewed which show disc space narrowing and vacuum phenomenon within the L2-3, L4-5 and L5-S1 discs. Mild degenerative changes seen within the apophyseal joints within the lower lumbar spine. Mild degenerative changes also seen within the SI joints. 12/31/20 17:34 Patient is feeling better. I will therefore discharge her to home. She states her paraesophageal hernia repair or hiatal hernia repair was about [address] Arias. She was identified to have a peptic stricture at that time. I am going to send her home with prescriptions for Bentyl 20 mg tablet to be used every 6 hours. For similar type pain or if this pain does not continue to improve tonight. Also Levsin 0.125 mg tablet can be taken at onset of this type of pain and repeated in 10 minutes as well as taking a Bentyl 20 mg tablet which will take a good hour and a quarter to work. She will return to the hospital if she is not markedly improved over the next 24 hours. Departure - Departure Time of Disposition: 17:35 Disposition: Home, Self-Care 01 Reason for Transfer *Q: Other Condition: Fair Clinical Impression: Epigastric abdominal pain, Hiatal hernia Prescriptions: Dicyclomine [Bentyl] 20 mg PO Q6H PRN #12 tablet PRN Reason: Abdominal cramps/diarrhea Hyoscyamine Sulfate [Levsin-Sl] 0.125 mg SL ASDIRECTED #8 tab.subl Instructions: Hernia, Adult, [id number], Abdominal Pain, Adult, [id number] Referrals: Gino Marsh MD [Primary Care Provider] - Forms: ED Department Discharge Additional Instructions: Evaluation in the emergency room today in regards to development of severe epigastric abdominal pain like a tight clenched fist in the pit of your stomach around noon hour today. Nothing special about diet today that would have precipitated this. History of previous paraesophageal hernia repair 2 years ago. Previous gallbladder movable several years ago. Labs done through the emergency department revealed no evidence of common bile duct obstruction or pancreatitis. X-rays of the chest and abdomen proved to be normal. CT of the chest abdomen pelvis was performed because of elevated D-dimer at 0.90 with normal being up to 0.56. Concern was for possible blood clot in the lung. No blood clots were identified in the lungs on CT examination of the chest. However it did reveal the problem to be a hiatal hernia with approximately one quarter of your stomach herniated up through the diaphragm behind your heart which is the source of today's pain. It slowly improved with time in the emergency department. You were given tablets of Levsin 0.125 mg on the tongue and Bentyl 20 mg orally which would take about an hour and a quarter to work. I have sent similar tablets home with you. Levsin is to be taken 0.125 mg tab under the tongue at initial onset of this type of discomfort and repeated in 10 minutes time with another tablet. You should also take Bentyl 20 mg tablet at the same time as the first Levsin tablet as this takes about an hour and a quarter to work. Drinking water and walking usually helps bring the stomach back down into the abdomen where it belongs. Continue to use Bentyl 20 mg every 6 hours as needed tonight and tomorrow. However you should expect marked improvement over the next 16 to 24 hours if not you need to be reviewed again as sometimes the stomach can become permanently stuck in this area and swell due to edema and develop stomach obstruction. Sepsis Event Note (ED) - Focused Exam Vital Signs: Vital Signs Temp Pulse Resp BP Pulse Ox 12/31/20 15:12 36.3 C 79 20 154/102 H 95 - My Orders Last 24 Hours: My Active Orders 12/31/20 15:10 EKG 12 Lead [EK] Stat - Assessment/Plan Last 24 Hours: My Active Orders 12/31/20 15:10 EKG 12 Lead [EK] Stat
[2020-12-31 15:13] VITALS: BP 154/102; PULSE 79
[2020-12-31] MEDS ORDERED: HYDROmorphone 0.5 MG/0.5 ML Syringe IVPUSH ONE (15:22)
[2020-12-31] MEDS ORDERED: Ondansetron 4 MG/2 ML SDV IVPUSH ONE (15:22)
[2020-12-31] MEDS ORDERED: Sodium Chloride 0.9% 1,000 ML IV SCH (15:30)
[2020-12-31] MEDS ORDERED: Dicyclomine 10 MG Cap PO ONE (16:21)
[2020-12-31] MEDS ORDERED: Hyoscyamine 0.125 MG Tab.SL SL ONE (16:21)
[2020-12-31] MEDS ORDERED: Iopamidol 755 MG/ML 50 ML Bottle IVPUSH ONE (16:29)
[2020-12-31] MEDS ORDERED: Iopamidol 755 Mg/ML 100 ML Bottle IVPUSH ONE (16:29)
[2020-12-31] MEDS ORDERED: Sodium Chloride 0.9% 100 ML IV SCH (16:30)
[2020-12-31] MEDS ORDERED: Sodium Chloride 0.9% 10 ML Syringe FLUSH SCH (16:30)
--- NOTE | 2020-12-31 17:36 | CR ---
Chest: AP view of the chest was obtained. Comparison: No prior chest imaging is available. Heart size and mediastinum are normal. Lungs are clear with no acute parenchymal change. No acute osseous abnormality is appreciated. Impression: 1. Nothing acute is seen on AP chest x-ray. Diagnostic code #1
--- NOTE | 2020-12-31 17:37 | CR ---
Abdomen: Supine view of the abdomen was obtained. Comparison: No prior abdominal plain film study is available. Bowel gas pattern is normal. Calcifications are seen within the pelvis which are compatible with phleboliths. Calcification is noted within the left upper abdomen which is nonspecific but most likely benign. Minimal degenerative change is seen within the spine. Impression: 1. Findings believed to be incidental as noted above. 2. Nothing acute is seen. Diagnostic code #2
--- NOTE | 2020-12-31 17:57 | CT ---
CT chest Technique: Multiple axial sections were obtained through the chest. Study was performed as a pulmonary angiogram exam. Comparison: No prior chest imaging is available. Findings: Thoracic aorta shows no aneurysm. Pulmonary arteries show no discrete filling defects to indicate definite pulmonary embolism. Small area of low density is seen within the left lobe of the thyroid gland which measures 1.4 cm. This is compatible with a thyroid cyst. Mediastinum shows no adenopathy. Coronary artery calcification is seen. No pericardial thickening is seen. Lung window settings were reviewed. Slight dependent atelectasis is incidentally noted within both posterior lungs. Nodule is identified within the left lung base which shows calcification and measures about 1 cm which is compatible with an incidental granuloma. Lungs show no acute parenchymal change. Bone window settings were reviewed which show mild diffuse disc space narrowing within the visualized lower cervical spine and thoracic spine. No acute osseous abnormality is appreciated. Impression: 1. No findings of pulmonary embolism. 2. Coronary artery calcification. 3. 1 cm calcified granuloma within the left lung base. 4. Other findings as noted above which are nonacute. Diagnostic code #2 CT abdomen and pelvis Technique: Multiple axial sections were obtained from above the dome of the diaphragm inferiorly through the pubic symphysis. Intravenous contrast was utilized. No oral contrast has been given. Comparison: No prior abdominal CT abdomen study is available. Findings: Small to moderate size hiatal hernia is seen. Slight wall thickening is seen within the esophagus which is suspicious for non-documented reflux esophagitis. Low-density lesion is noted within the posterior right lobe of the liver measuring 1.3 cm. This appears to be solid and is otherwise nonspecific. Liver is otherwise unremarkable. Gallbladder is not seen. Spleen size is normal. Adrenal glands show no nodule. Pancreas appears to show a nodule on the axial views but on the coronal images the nodule represents vascular looping. Pancreas shows no abnormality. Kidneys show symmetric contrast enhancement. Cyst is noted within the right kidney measuring 3.6 cm. Abdominal aorta shows atherosclerotic calcification which continues into the iliac vessels. No aneurysm is seen. No pelvic mass or adenopathy is noted. Delayed images show contrast within the distal ureters and within the pelvis. Appendix is not definitely visualized. Bone window settings were reviewed which show disc space narrowing and vacuum phenomena within the L2-3, L4-5 and L5-S1 discs. Mild degenerative change is seen within the apophyseal joints within the lower lumbar spine. Mild degenerative change is also seen within the sacroiliac joints. Impression: 1. Small solid abnormality within the right lobe of the liver which measures 1.3 cm. This is nonspecific regarding etiology. Recommend follow-up CT study of the upper abdomen with contrast in 3 months to evaluate for stability. 2. Other findings believed to be nonacute as described above. Diagnostic code #9
== END 2020-12-31 17:59 | disposition home or self-care (01) ==
LOC: JD.ED 14:44
DX: K44.9 Diaphragmatic hernia without obstruction or gangrene (principal); Z88.5 Allergy status to narcotic agent; Z88.1 Allergy status to other antibiotic agents; Z88.2 Allergy status to sulfonamides; Z88.6 Allergy status to analgesic agent; Z79.899 Other long term (current) drug therapy
CPT/HCPCS: 36415; 71045; 71260; 74018; 74177; 80053; 81001; 82553; 82977; 83690; 83735; 83880; 84484; 85025; 85379; 85610; 85730; 86140; 93005; 96374; 99284; A9270; J2405; J7030; Q9967; 93010

== ENCOUNTER 2022-04-12 23:55 | Emergency (ER) | payer MEDICARE, BC ==
[2022-04-13 00:18] VITALS: BP 184/106; PULSE 72
[2022-04-13 02:01] LABS: CORONAVIRUS COVID-19 NAA NEGATIVE (NEGATIVE)
== END 2022-04-13 03:22 | disposition home or self-care (01) ==
LOC: JD.ED 23:55
DX: R55 Syncope and collapse (principal); R05.9 Cough, unspecified; R52 Pain, unspecified; I25.10 Atherosclerotic heart disease of native coronary artery without angina pectoris; M19.90 Unspecified osteoarthritis, unspecified site; I44.0 Atrioventricular block, first degree; E66.9 Obesity, unspecified; Z68.37 Body mass index [BMI] 37.0-37.9, adult; Z88.1 Allergy status to other antibiotic agents; Z88.5 Allergy status to narcotic agent; Z88.0 Allergy status to penicillin; Z88.2 Allergy status to sulfonamides; Z88.8 Allergy status to other drugs, medicaments and biological substances; Z79.899 Other long term (current) drug therapy; Z20.822 Contact with and (suspected) exposure to COVID-19
CPT/HCPCS: 0241U; 36415; 71046; 80053; 81001; 83605; 83735; 83880; 84443; 84484; 85007; 85027; 85379; 87040; 93005; 99284

== ENCOUNTER 2022-05-12 00:38 | Emergency (ER) | payer MEDICARE, BC ==
[2022-05-12 03:05] VITALS: BP 150/96; PULSE 66
== END 2022-05-12 03:03 | disposition home or self-care (01) ==
LOC: JD.ED 00:38
DX: I10 Essential (primary) hypertension (principal); I25.10 Atherosclerotic heart disease of native coronary artery without angina pectoris; E66.9 Obesity, unspecified; Z68.36 Body mass index [BMI] 36.0-36.9, adult; Z88.0 Allergy status to penicillin; Z88.2 Allergy status to sulfonamides; Z88.8 Allergy status to other drugs, medicaments and biological substances; Z88.1 Allergy status to other antibiotic agents; Z88.5 Allergy status to narcotic agent; Z79.899 Other long term (current) drug therapy
CPT/HCPCS: 36415; 80053; 84484; 85025; 93005; 99283

== ENCOUNTER 2023-01-29 22:50 | Emergency (ER) | payer MEDICARE, BC ==
[2023-01-29] MEDS ORDERED: Sodium Chloride 0.9% 1,000 ML IV ONE (23:20)
[2023-01-29 23:39] LABS: BASOPHILS PERCENT AUTO 0.3 % (0.0-1.0); EOSINOPHILS ABSOLUTE AUTO 0.3 K/mm3 (0.0-0.4); EOSINOPHILS PERCENT AUTO 3.4 % (0.0-6.0); HEMATOCRIT 41.2 % (37.0-47.0); HEMOGLOBIN 13.5 gm/dl (12.0-16.0); IMMATURE GRAN ABSOLUTE AUTO 0.06 K/mm3 (0.00-0.05); IMMATURE GRAN PERCENT AUTO 0.7 % (0.0-0.4); LYMPHOCYTES ABSOLUTE AUTO 2.3 K/mm3 (1.0-4.8); LYMPHOCYTES PERCENT AUTO 24.9 % (24.0-44.0); MEAN CORPUSCULAR HEMOGLOBIN 31.7 pg (28.0-32.0); MEAN CORPUSCULAR HGB CONC 32.8 g/dl (32.0-36.0); MEAN CORPUSCULAR VOLUME 96.7 fl (83.0-99.0); MEAN PLATELET VOLUME 9.2 fl (9.4-12.3); MONOCYTES ABSOLUTE AUTO 0.7 K/mm3 (0.0-0.8); NEUTROPHILS ABSOLUTE AUTO 5.7 K/mm3 (1.8-7.7); NEUTROPHILS PERCENT AUTO 62.7 % (41.0-71.0); PLATELET COUNT,PLT 272 K/mm3 (150-400); RED BLOOD CELL COUNT 4.26 M/mm3 (4.10-5.30); WHITE BLOOD CELL COUNT,WBC 9.12 K/mm3 (3.9-11.3)
[2023-01-29] MEDS: Sodium Chloride 0.9% 10 ML Syringe FLUSH PRN (23:41)
[2023-01-30 00:02] LABS: ALBUMIN 3.5 g/dl (3.4-5.0); ANION GAP 17.8 (5-15); BILIRUBIN TOTAL 0.4 mg/dL (0.2-1.0); CALCIUM 8.6 mg/dL (8.5-10.1); CREATININE 1.1 mg/dL (0.55-1.02); EST CRCL DRUG DOSING (CG) 49.99 mL/min; POTASSIUM,K 3.8 mEq/L (3.5-5.1); PROTEIN TOTAL,TP 7.2 g/dl (6.4-8.2)
[2023-01-30] MEDS ORDERED: Iopamidol 612 MG/ML 100 ML Bottle IVPUSH ONE (00:11)
[2023-01-30] MEDS: Sodium Chloride 0.9% 10 ML Syringe FLUSH PRN (00:12)
[2023-01-30] MEDS ORDERED: Sodium Chloride 0.9% 100 ML IV SCH (00:15)
[2023-01-30] MEDS ORDERED: Azithromycin 250 MG Tab PO ONE (00:55)
[2023-01-30] MEDS ORDERED: Loperamide 2 MG Cap PO ONE (00:56)
[2023-01-30 01:16] VITALS: BP 108/66; PULSE 71
== END 2023-01-30 01:13 | disposition home or self-care (01) ==
LOC: JD.ED 22:50
DX: R19.7 Diarrhea, unspecified (principal); I25.10 Atherosclerotic heart disease of native coronary artery without angina pectoris; E66.9 Obesity, unspecified; Z68.37 Body mass index [BMI] 37.0-37.9, adult; Z86.16 Personal history of COVID-19; Z79.899 Other long term (current) drug therapy; Z88.2 Allergy status to sulfonamides; Z88.1 Allergy status to other antibiotic agents; Z88.5 Allergy status to narcotic agent; Z88.8 Allergy status to other drugs, medicaments and biological substances; Z88.0 Allergy status to penicillin
CPT/HCPCS: 36415; 74177; 80053; 83690; 85025; 87045; 87046; 87493; 87899; 96360; 99284; A9270; J3490; J7030; Q9967

== ENCOUNTER 2023-12-31 00:59 | Emergency (ER) | payer MEDICARE, BC ==
[2023-12-31 02:17] LABS: BASOPHILS ABSOLUTE AUTO 0.1 K/mm3 (0.0-0.2); BASOPHILS PERCENT AUTO 0.9 % (0.0-1.0); EOSINOPHILS ABSOLUTE AUTO 0.3 K/mm3 (0.0-0.4); EOSINOPHILS PERCENT AUTO 3.6 % (0.0-6.0); HEMATOCRIT 42.2 % (37.0-47.0); HEMOGLOBIN 13.8 gm/dl (12.0-16.0); IMMATURE GRAN ABSOLUTE AUTO 0.05 K/mm3 (0.00-0.05); IMMATURE GRAN PERCENT AUTO 0.6 % (0.0-0.4); LYMPHOCYTES ABSOLUTE AUTO 2.4 K/mm3 (1.0-4.8); MEAN CORPUSCULAR HEMOGLOBIN 31.8 pg (28.0-32.0); MEAN CORPUSCULAR HGB CONC 32.7 g/dl (32.0-36.0); MEAN CORPUSCULAR VOLUME 97.2 fl (83.0-99.0); MEAN PLATELET VOLUME 9.2 fl (9.4-12.3); MONOCYTES ABSOLUTE AUTO 0.7 K/mm3 (0.0-0.8); MONOCYTES PERCENT AUTO 8.5 % (0.0-8.0); NEUTROPHILS ABSOLUTE AUTO 4.3 K/mm3 (1.8-7.7); NEUTROPHILS PERCENT AUTO 55.4 % (41.0-71.0); PLATELET COUNT,PLT 220 K/mm3 (150-400); RED BLOOD CELL COUNT 4.34 M/mm3 (4.10-5.30)
[2023-12-31 02:41] LABS: ALBUMIN 3.3 g/dl (3.4-5.0); BILIRUBIN TOTAL 0.4 mg/dL (0.2-1.0); BUN/CREATININE RATIO 7.5 (14-18); C-REACTIVE PROTEIN 0.12 mg/dL (<0.30); CALCIUM 8.9 mg/dL (8.5-10.1); CREATININE 1.2 mg/dL (0.55-1.02); EST CRCL DRUG DOSING (CG) 43.63 mL/min; MAGNESIUM 2.2 mg/dL (1.8-2.4); PROTEIN TOTAL,TP 6.5 g/dl (6.4-8.2)
[2023-12-31 03:30] LABS: APPEARANCE,URINE CLEAR (Clear); BILIRUBIN,URINE NEGATIVE (Negative); COLOR,URINE YELLOW (Yellow); GLUCOSE,URINE 2+ (Negative); KETONES,URINE NEGATIVE (Negative); LEUKOCYTE ESTERASE,URINE NEGATIVE (Negative); NITRITE,URINE NEGATIVE (Negative); OCCULT BLOOD,URINE TRACE-INTACT (Negative); PH,URINE 5.5 (5.0-8.0); PROTEIN,URINE NEGATIVE (Negative); UROBILINOGEN,URINE 0.2 (0.2-1.0)
[2023-12-31 03:37] LABS: BACTERIA,URINE FEW /hpf (FEW); MUCUS,URINE RARE /hpf (FEW); RBC,URINE 0-5 /hpf (0-5); SQUAMOUS EPITHELIAL CELLS,UR 0-5 /hpf (0-5); WBC,URINE 0-5 /hpf (0-5)
[2023-12-31 04:01] VITALS: BP 111/68; PULSE 68
== END 2023-12-31 03:53 | disposition home or self-care (01) ==
LOC: JD.ED 00:59
DX: R07.89 Other chest pain (principal); I10 Essential (primary) hypertension; E78.00 Pure hypercholesterolemia, unspecified; I25.10 Atherosclerotic heart disease of native coronary artery without angina pectoris; K21.9 Gastro-esophageal reflux disease without esophagitis; Z86.16 Personal history of COVID-19; Z90.49 Acquired absence of other specified parts of digestive tract; Z90.710 Acquired absence of both cervix and uterus; Z88.0 Allergy status to penicillin; Z88.2 Allergy status to sulfonamides; Z88.8 Allergy status to other drugs, medicaments and biological substances; Z88.5 Allergy status to narcotic agent; Z88.6 Allergy status to analgesic agent; Z88.1 Allergy status to other antibiotic agents; Z79.82 Long term (current) use of aspirin; Z79.899 Other long term (current) drug therapy
CPT/HCPCS: 36415; 80053; 81001; 83735; 84484; 85025; 86140; 93005; 93010; 99282; 99285

== ENCOUNTER 2025-03-26 18:37 | Emergency (ER) | payer MEDICARE, BC ==
[2025-03-26 18:52] VITALS: BP 136/87; PULSE 80
[2025-03-26] MEDS ORDERED: Sodium Chloride 0.9% 10 ML Syringe FLUSH PRN (19:09)
[2025-03-26 19:33] LABS: BASOPHILS ABSOLUTE AUTO 0.1 K/mm3 (0.0-0.2); BASOPHILS PERCENT AUTO 0.9 % (0.0-1.0); EOSINOPHILS ABSOLUTE AUTO 0.1 K/mm3 (0.0-0.4); EOSINOPHILS PERCENT AUTO 0.9 % (0.0-6.0); IMMATURE GRAN ABSOLUTE AUTO 0.11 K/mm3 (0.00-0.05); IMMATURE GRAN PERCENT AUTO 1.2 % (0.0-0.4); LYMPHOCYTES ABSOLUTE AUTO 1.9 K/mm3 (1.0-4.8); LYMPHOCYTES PERCENT AUTO 20.8 % (24.0-44.0); MEAN PLATELET VOLUME 9.5 fl (9.4-12.3); MONOCYTES ABSOLUTE AUTO 0.8 K/mm3 (0.0-0.8); MONOCYTES PERCENT AUTO 8.5 % (0.0-8.0); NEUTROPHILS ABSOLUTE AUTO 6.1 K/mm3 (1.8-7.7); NEUTROPHILS PERCENT AUTO 67.7 % (41.0-71.0); NRBC ABSOLUTE 0.00 (0.00-0.02); NRBC PERCENT 0.0 % (0.0-0.2); PLATELET COUNT,PLT 247 K/mm3 (150-400); RED BLOOD CELL COUNT 4.37 M/mm3 (4.10-5.30); WHITE BLOOD CELL COUNT,WBC 9.01 K/mm3 (3.9-11.3)
[2025-03-26 19:58] LABS: A/G RATIO 1.1 (1-2); ALANINE AMINOTRANSFERASE,ALT 43.0 U/L (14-59); ASPARTATE AMNIOTRANSFERASE,AST 31.0 U/L (15-37); BILIRUBIN TOTAL 0.7 mg/dL (0.2-1.0); BLOOD UREA NITROGEN,BUN 13.0 mg/dL (7-18); CARBON DIOXIDE,CO2 24.0 mEq/L (21-32); CHLORIDE,CL 107.0 mEq/L (98-107); CREATININE 1.3 mg/dL (0.55-1.02); EST CRCL DRUG DOSING (CG) 38.3 mL/min; ESTIMATED GFR 43.0 mL/min (>60); GLUCOSE RANDOM 106.0 mg/dL (70-99); POTASSIUM,K 3.5 mEq/L (3.5-5.1); PROTEIN TOTAL,TP 6.6 g/dl (6.4-8.2); SODIUM,NA 143.0 mEq/L (136-145); TROPONIN I HIGH SENSITIVITY 8.0 pg/mL (<=51)
[2025-03-26 20:21] LABS: TSH 2.654 uIU/mL (0.358-3.74)
[2025-03-26 21:54] LABS: APPEARANCE,URINE CLEAR (Clear); GLUCOSE,URINE NEGATIVE (Negative); OCCULT BLOOD,URINE NEGATIVE (Negative)
[2025-03-26 22:17] LABS: EPITHELIAL CELLS,URINE 0-5 /hpf (0-5)
== END 2025-03-26 22:22 | disposition home or self-care (01) ==
LOC: JD.ED 18:37
DX: R42 Dizziness and giddiness (principal); I10 Essential (primary) hypertension; M19.90 Unspecified osteoarthritis, unspecified site; E66.9 Obesity, unspecified; Z88.0 Allergy status to penicillin; Z88.2 Allergy status to sulfonamides; Z88.1 Allergy status to other antibiotic agents; Z88.8 Allergy status to other drugs, medicaments and biological substances; Z79.82 Long term (current) use of aspirin; Z79.899 Other long term (current) drug therapy; Z86.16 Personal history of COVID-19; Z90.49 Acquired absence of other specified parts of digestive tract; Z90.710 Acquired absence of both cervix and uterus
CPT/HCPCS: 36415; 71045; 71045-26; 80053; 81001; 83735; 83880; 84443; 84484; 85025; 93005; 93010; 99283; 99284

== ENCOUNTER 2025-03-31 08:46 | Emergency (ER) | payer MEDICARE, BC ==
[2025-03-31 09:03] VITALS: PULSE 72
[2025-03-31] MEDS ORDERED: Sodium Chloride 0.9% 10 ML Syringe FLUSH PRN (09:11)
[2025-03-31 09:25] LABS: BASOPHILS ABSOLUTE AUTO 0.1 K/mm3 (0.0-0.2); BASOPHILS PERCENT AUTO 1.0 % (0.0-1.0); EOSINOPHILS ABSOLUTE AUTO 0.1 K/mm3 (0.0-0.4); EOSINOPHILS PERCENT AUTO 1.6 % (0.0-6.0); IMMATURE GRAN ABSOLUTE AUTO 0.10 K/mm3 (0.00-0.05); IMMATURE GRAN PERCENT AUTO 1.3 % (0.0-0.4); LYMPHOCYTES ABSOLUTE AUTO 1.4 K/mm3 (1.0-4.8); LYMPHOCYTES PERCENT AUTO 18.6 % (24.0-44.0); MEAN PLATELET VOLUME 9.2 fl (9.4-12.3); MONOCYTES ABSOLUTE AUTO 0.7 K/mm3 (0.0-0.8); MONOCYTES PERCENT AUTO 9.0 % (0.0-8.0); NEUTROPHILS ABSOLUTE AUTO 5.2 K/mm3 (1.8-7.7); NEUTROPHILS PERCENT AUTO 68.5 % (41.0-71.0); NRBC ABSOLUTE 0.00 (0.00-0.02); NRBC PERCENT 0.0 % (0.0-0.2); PLATELET COUNT,PLT 230 K/mm3 (150-400); RED BLOOD CELL COUNT 4.36 M/mm3 (4.10-5.30); WHITE BLOOD CELL COUNT,WBC 7.65 K/mm3 (3.9-11.3)
[2025-03-31 09:39] LABS: APPEARANCE,URINE CLEAR (Clear); GLUCOSE,URINE NEGATIVE (Negative); OCCULT BLOOD,URINE NEGATIVE (Negative)
[2025-03-31 09:52] LABS: SQUAMOUS EPITHELIAL CELLS,UR 0-5 /hpf (0-5)
[2025-03-31 09:53] LABS: A/G RATIO 1.0 (1-2); ALANINE AMINOTRANSFERASE,ALT 41.0 U/L (14-59); ASPARTATE AMNIOTRANSFERASE,AST 31.0 U/L (15-37); BILIRUBIN TOTAL 0.8 mg/dL (0.2-1.0); BLOOD UREA NITROGEN,BUN 14.0 mg/dL (7-18); CARBON DIOXIDE,CO2 25.0 mEq/L (21-32); CHLORIDE,CL 106.0 mEq/L (98-107); CREATININE 1.1 mg/dL (0.55-1.02); EST CRCL DRUG DOSING (CG) 45.26 mL/min; ESTIMATED GFR 53.0 mL/min (>60); GLUCOSE RANDOM 104.0 mg/dL (70-99); POTASSIUM,K 3.5 mEq/L (3.5-5.1); PROTEIN TOTAL,TP 6.9 g/dl (6.4-8.2); SODIUM,NA 142.0 mEq/L (136-145); TROPONIN I HIGH SENSITIVITY 10.0 pg/mL (<=51); TSH 1.504 uIU/mL (0.358-3.74)
[2025-03-31] MEDS: LORazepam 2 MG/ML SDV IVPUSH ONE (10:18)
[2025-04-03 03:52] VITALS: BP 124/78
== END 2025-03-31 13:44 ==
LOC: JD.ED 08:46
DX: R00.2 Palpitations (principal); R82.90 Unspecified abnormal findings in urine; I25.10 Atherosclerotic heart disease of native coronary artery without angina pectoris; E78.00 Pure hypercholesterolemia, unspecified; I10 Essential (primary) hypertension; K21.9 Gastro-esophageal reflux disease without esophagitis; Z88.0 Allergy status to penicillin; Z88.2 Allergy status to sulfonamides; Z88.5 Allergy status to narcotic agent; Z88.8 Allergy status to other drugs, medicaments and biological substances; Z88.6 Allergy status to analgesic agent; Z79.82 Long term (current) use of aspirin; Z79.899 Other long term (current) drug therapy; Z90.49 Acquired absence of other specified parts of digestive tract; Z90.710 Acquired absence of both cervix and uterus
CPT/HCPCS: 36415; 71045; 80053; 81001; 83735; 84443; 84484; 85025; 87086; 93005; 96374; 99285; J2060